=== PATIENT | female | born 1995 | race Caucasian/White ===

== ENCOUNTER 2021-03-28 13:10 | Emergency (ER) | payer OTHER ==
[~2021-03-28] VITALS: Ht 152.4 cm; Wt 49.9 kg
[2021-03-28 13:19] VITALS: BP 113/76
--- NOTE | 2021-03-28 13:22 | NUR ---
PT SENT TO LOBBY TO WAIT FOR X-RAY AND MSE.
--- NOTE | 2021-03-28 14:03 | NUR ---
PT AMBULATED TO BED 12.
[2021-03-28] MEDS ORDERED: IBUPROFEN 400 MG TAB PO ONE (14:10)
--- NOTE | 2021-03-28 14:10 | NUR ---
presents to ED with c/o right foot pain s/p fall last night. Pt states she tripped and fell. Pt c/o 8/10 pain, limping with ambulation and states pain worsens with ambulation. CMS intact.
--- NOTE | 2021-03-28 14:20 | NUR ---
PT REFUSED CRUTCHES STATES "I DON'T NEED THEM"
--- NOTE | 2021-03-28 14:23 | NUR ---
Patient discharged with v/s stable. Written and verbal after care instructions given and explained. Patient verbalized understanding. Ambulatory with steady gait. All questions addressed prior to discharge. Advised to follow up with PMD.
== END 2021-03-28 14:23 | disposition home or self-care (01) ==
LOC: MED 13:10
DX: S93.401A Sprain of unspecified ligament of right ankle, initial encounter (principal); X58.XXXA Exposure to other specified factors, initial encounter; Y93.89 Activity, other specified; Y92.89 Other specified places as the place of occurrence of the external cause; Y99.8 Other external cause status
CPT/HCPCS: 73610; 73630; 99284